=== PATIENT | female | born 1985 | race Caucasian/White ===

== ENCOUNTER 2019-01-26 17:54 | Emergency (ER) | payer OTHER ==
[~2019-01-26] VITALS: Ht 175.3 cm; Wt 108.0 kg
[2019-01-26 18:22] VITALS: Ht 175.3 cm; Wt 108.0 kg
[2019-01-26 20:52] LABS: BASOPHIL % 0.4 % (0-2); PLATELET COUNT 278 x10^3mcL (130-400); RED CELL DISTRIBUTION WIDTH 14.1 % (11.5-14.5)
[2019-01-26 20:58] LABS: CALCIUM 9.3 mg/dL (8.5-10.1); CARBON DIOXIDE 25.5 mmol/L (21-32); CHLORIDE SERUM 104 mmol/L (98-107); CREATININE SERUM 0.7 mg/dL (0.6-1.0); GFR1 > 60 mL/min; GLUCOSE SERUM 90 mg/dL (74-106); POTASSIUM SERUM 3.7 mmol/L (3.5-5.1); SODIUM SERUM 139 mmol/L (136-145)
[2019-01-26 21:03] LABS: AMPHETAMINE QUAL UR NONE DETECTED (See below)
[2019-01-26 21:05] LABS: ALBUMIN 4.1 g/dL (3.4-5.0); ALKALINE PHOSPHATASE 121 U/L (46-116); ALT/SGPT 25 U/L (14-59); AST/SGOT 14 U/L (15-37); BILIRUBIN TOTAL 0.4 mg/dL (0.20-1.00)
[2019-01-27 01:13] VITALS: BP 122/61
== END 2019-01-27 01:13 | disposition home or self-care (01) ==
LOC: ED 17:54
PROVIDERS: Emergency Medicine
DX: O99.341 Other mental disorders complicating pregnancy, first trimester (principal); F32.9 Major depressive disorder, single episode, unspecified; Z3A.01 Less than 8 weeks gestation of pregnancy; Z88.5 Allergy status to narcotic agent
CPT/HCPCS: 36415; G0480